=== PATIENT | female | born 1960 | race Caucasian/White ===

== ENCOUNTER 2023-03-23 10:18 | Day surgery (SDC) | payer OTHER ==
[2023-03-22 09:54] VITALS: BMI 18.5
[2023-03-23 10:47] VITALS: RESP 18
[2023-03-23 11:48] VITALS: PULSE 67; TEMP 97.7
[2023-03-23 12:07] VITALS: BP 100/60
== END 2023-03-23 12:44 | disposition home or self-care (01) ==
LOC: FASU-ENDO 10:18
PROVIDERS: ATTEND Internal Medicine Gastroenterology
PROC: 0DJD8ZZ Inspection of Lower Intestinal Tract, Via Natural or Artificial Opening Endoscopic (ICD-10-PCS; principal; 2023-03-23 11:30)
DX: Z12.11 Encounter for screening for malignant neoplasm of colon (principal); K64.1 Second degree hemorrhoids; K64.8 Other hemorrhoids; Z86.010 Personal history of colon polyps